=== PATIENT | male | born 1990 | race African-American/Black ===

== ENCOUNTER 2020-03-02 21:15 | Emergency (ER) | payer SELFPAY ==
[~2020-03-02] VITALS: Ht 182.9 cm; Wt 76.8 kg
[2020-03-02 21:27] VITALS: BP 146/88
--- NOTE | 2020-03-02 22:02 | PHYS DOC ---
Past Medical History Past Medical History: Seizure, Other Additional Past Medical Histor: "HEART FALIURE" (SAMI MCDERMOTT APRN) Past Surgical History: No Surgical History (SAMI MCDERMOTT APRN) Smoking Status: Never Smoker Alcohol Use: None (SAMI MCDERMOTT APRN) General Adult EDM: Chief Complaint: EARACHE/EAR PAIN HPI: HPI: Patient is a 29 year old male with hx of seizures who presents to the ED today with left ear pain that began 2 days ago after he had a seizure. Patient states he has decreased hearing to that ear. He is also complaining of a contusion on the top of the head that he noted after he had a seizure. He states he was evaluated at [facility] when he had a seizure. (SAMI MCDERMOTT APRN) Review of Systems: Review of Systems: Constitutional: Denies fever or chills. [] Eyes: Denies change in visual acuity. [] HENT: Reports left ear pain. Denies nasal congestion or sore throat. [] Respiratory: Denies cough or shortness of breath. [] Cardiovascular: Denies chest pain or edema. [] GI: Denies abdominal pain, nausea, vomiting, bloody stools or diarrhea. [] : Denies dysuria. [] Musculoskeletal: Denies back pain or joint pain. [] Integument: Denies rash. [] Neurologic: Reports contusion to the head. Denies headache, focal weakness or sensory changes. [] Psychiatric: Denies depression or anxiety. [] (SAMI MCDERMOTT APRN) Heart Score: Risk Factors: Risk Factors: DM, Current or recent (<one month) smoker, HTN, HLP, family history of CAD, obesity. Risk Scores: Score 0 - 3: 2.5% MACE over next 6 weeks - Discharge Home Score 4 - 6: 20.3% MACE over next 6 weeks - Admit for Clinical Observation Score 7 - 10: 72.7% MACE over next 6 weeks - Early Invasive Strategies (SAMI MCDERMOTT APRN) Allergies: Allergies: Allergies Coded Allergies Type Severity Reaction Last Updated Verified No Known Drug Allergies 03/02/20 No (SAMI MCDERMOTT APRN) Physical Exam: PE: Constitutional: Well developed, well nourished, no acute distress, non-toxic appearance. [] HENT: Normocephalic, atraumatic, bilateral external ears normal, oropharynx moist, no oral exudates, nose normal. [] Right ear canal with small amount of fresh bright red blood, TM is ruptured. Patient admits to sticking Q-tips in the ear canal. Eyes: PERRLA, EOMI, conjunctiva normal, no discharge. [] Neck: Normal range of motion, no tenderness, supple, no stridor. [] Cardiovascular:Heart rate regular rhythm, no murmur [] Lungs & Thorax: Bilateral breath sounds clear to auscultation [] Abdomen: Bowel sounds normal, soft, no tenderness, no masses, no pulsatile masses. [] Skin: Warm, dry, no erythema, no rash. [] Back: No tenderness, no CVA tenderness. [] Extremities: No tenderness, no cyanosis, no clubbing, ROM intact, no edema. [] Neurologic: Alert and oriented X 3, normal motor function, normal sensory function, no focal deficits noted. Small contusion noted at the mid parietal scalp. [] Psychologic: Affect normal, judgement normal, mood normal. [] (SAMI MCDERMOTT APRN) Current Patient Data: Vital Signs: Vital Signs Date Time Temp Pulse Resp B/P (MAP) Pulse Ox O2 Delivery O2 Flow Rate FiO2 03/02/20 21:27 97.3 81 13 146/88 (107) 99 Room Air 97.3 (SAMI MCDERMOTT APRN) EKG: EKG: [] (SAMI MCDERMOTT APRN) Radiology/Procedures: Radiology/Procedures: [] (SAMI MCDERMOTT APRN) Course & Med Decision Making: Course & Med Decision Making Pertinent Labs and Imaging studies reviewed. (See chart for details) This is a 29-year-old male patient who presents to the ED today complaining of left ear pain that began 2 days ago. Patient has a ruptured TM, unfortunately this happened because he has been sticking Q-tips in his ears for two days due to pain. Will d/c with amoxicillin and educated not to put anything in his ears. He also had a seizure 2 days ago and was complaining about a contusion to the scalp. He was already evaluated at [facility] for the seizure. Recommended ice packs to the contusion. Encourage him to be sure he is taking his seizure medicines. (SAMI MCDERMOTT APRN) Dragon Disclaimer: Dragолег Disclaimer: This electronic medical record was generated, in whole or in part, using a voice recognition dictation system. (SAMI MCDERMOTT APRN) Departure Departure Impression: Primary Impression: Tympanic membrane rupture Qualified Codes: H72.92 - Unspecified perforation of tympanic membrane, left ear Additional Impression: Scalp contusion Qualified Codes: S00.03XA - Contusion of scalp, initial encounter Disposition: HOME, SELF-CARE Condition: STABLE Referrals: NO PCP (PCP) Follow-up with your doctor in 1 to 2 weeks Patient Instructions: Contusion, [id number], Tympanic Membrane Perforation- [facility] Additional Instructions: Please take the prescribed antibiotics until completed, do not put anything in your ears. You have a contusion to your scalp. Apply ice to this region. Follow-up with your own doctor in 1 to 2 weeks. Ensure you are taking your seizure medicines. Scripts Amoxicillin (AMOXICILLIN) 875 Mg Tablet 1 TAB PO BID, #20 TAB Prov: SAMI MCDERMOTT APRN 03/02/20 Justicifation of Admission Dx: Justifications for Admission: Justification of Admission Dx: N/A (SAMI MCDERMOTT APRN) Attending Signature Attending Signature I have reviewed the PA/DIRECTORY CLERK's note and plan of care. I was available for consultation as needed during the patient's visit in the emergency department. I agree with the clinical impression, plan, and disposition. (JEROD FIGUEROA DO) SAMI MCDERMOTT APRN Mar 02, 2020 22:02 JEROD FIGUEROA DO Mar 03, 2020 01:59
[2020-03-02] MEDS ORDERED: AMOX875T PO (22:05)
== END 2020-03-02 22:08 | disposition home or self-care (01) ==
LOC: ER 21:15
DX: S00.03XA Contusion of scalp, initial encounter (principal); H72.92 Unspecified perforation of tympanic membrane, left ear; R56.9 Unspecified convulsions; X58.XXXA Exposure to other specified factors, initial encounter; Y93.89 Activity, other specified; Y92.89 Other specified places as the place of occurrence of the external cause; Y99.8 Other external cause status
CPT/HCPCS: 99283

== ENCOUNTER 2020-03-12 23:34 | Emergency (ER) | payer SELFPAY ==
[~2020-03-12] VITALS: Ht 198.1 cm; Wt 80.0 kg
[~2020-03-12 23:34] MED LIST: AMOX875T PO
[2020-03-13] MEDS ORDERED: ACETAMINOPHEN 325 MG TABLET. PO ONE (01:00)
[2020-03-13 02:00] LABS: BASO # 0.1 x10^3/uL (0.0-0.2); BASO % 1 % (0-3); EOS % 0 % (0-3); HEMATOCRIT 39.2 % (39.0-53.0); HEMOGLOBIN 13.6 g/dL (13.0-17.5); LYMPH # 1.7 x10^3/uL (1.0-4.8); LYMPH % 14 % (24-48); MEAN CORPUSCULAR HEMOGLOBIN 29 pg (25-35); MEAN CORPUSCULAR HGB CONC 35 g/dL (31-37); MEAN CORPUSCULAR VOLUME 84 fL (79-100); MONO # 1.7 x10^3/uL (0.0-1.1); MONO % 14 % (0-9); NEUT # 8.6 x10^3/uL (1.8-7.7); NEUT % 71 % (31-73); PLATELET COUNT 179 x10^3/uL (140-400); RED BLOOD COUNT 4.67 x10^6/uL (4.30-5.70); RED CELL DISTRIBUTION WIDTH 14.1 % (11.5-14.5); WHITE BLOOD COUNT 12.1 x10^3/uL (4.0-11.0)
[2020-03-13] MEDS ORDERED: IV NORMAL SALINE 1000ML BAG 1,000 ML IV ONE (02:00)
[2020-03-13] MEDS ORDERED: KETOROLAC 15 MG/ML VIAL. IVP ONE (02:00)
[2020-03-13 02:11] LABS: CALCIUM 8.7 mg/dL (8.5-10.1); CREATININE 1.2 mg/dL (0.7-1.3); GFR 86.6; POTASSIUM 3.6 mmol/L (3.5-5.1)
[2020-03-13 02:21] LABS: INFLUENZA A PATIENT NEGATIVE (NEGATIVE); INFLUENZA B PATIENT NEGATIVE (NEGATIVE)
[2020-03-13 02:26] LABS: ALBUMIN 3.3 g/dL (3.4-5.0); ALBUMIN/GLOBULIN RATIO 0.8 (1.0-1.7); TOTAL BILIRUBIN 0.3 mg/dL (0.2-1.0); TOTAL PROTEIN 7.3 g/dL (6.4-8.2)
--- NOTE | 2020-03-13 03:01 | RAD ---
INDICATION: Reason: pui / Spl. Instructions: / History: COMPARISON: None. FINDINGS: Single view of chest obtained. Cardiac silhouette is unremarkable given portable technique. No gross osseous destructive lesion. A well-defined focal infiltrate is not seen IMPRESSION: * No definite focal infiltrate is identified. Electronically signed by: Yinka Burris MD (03/13/2020 2:58 AM) [id number]
[2020-03-13] MEDS ORDERED: IBUP-1007 PO (03:32)
--- NOTE | 2020-03-13 03:32 | PHYS DOC ---
Past Medical History Past Medical History: CHF Additional Past Medical Histor: LACERATED LIVER Past Surgical History: No Surgical History Smoking Status: Current Every Day Smoker Additional Information: PACK / DAY Alcohol Use: Occasionally Social History Narrative: LAST USED THE General Adult EDM: Chief Complaint: FEVER HPI: HPI: 29 yo M who denies any significant past medical history presents the ED with complaints of sore throat, dry nonproductive cough, fever, body aches and loose watery diarrhea for the past 4 days. Patient states he seen at yesterday and tested negative for strep, refused to covid test stating "I don't like [facility]." No history of IV drug use. Review of Systems: Review of Systems: Constitutional: Denies fever or chills. [] Eyes: Denies change in visual acuity. [] HENT: Denies nasal congestion or sore throat. [] Respiratory: Denies cough or shortness of breath. [] Or hemoptysis Cardiovascular: Denies chest pain or edema. [] Or syncope GI: Denies abdominal pain, nausea, vomiting, bloody stools or diarrhea. [] : Denies dysuria. [] Or hematuria Musculoskeletal: Denies back pain or joint pain. [] Integument: Denies rash. [] Neurologic: Denies headache, focal weakness or sensory changes. [] Neck stiffness or rigidity Endocrine: Denies polyuria or polydipsia. [] Lymphatic: Denies swollen glands. [] Psychiatric: Denies depression or anxiety. [] Heart Score: Risk Factors: Risk Factors: DM, Current or recent (<one month) smoker, HTN, HLP, family history of CAD, obesity. Risk Scores: Score 0 - 3: 2.5% MACE over next 6 weeks - Discharge Home Score 4 - 6: 20.3% MACE over next 6 weeks - Admit for Clinical Observation Score 7 - 10: 72.7% MACE over next 6 weeks - Early Invasive Strategies Current Medications: Current Medications Medications (Trade) Dose Ordered Sig/Betsey Start Time Stop Time Status Last Admin Dose Admin Acetaminophen (Tylenol) 650 mg 1X ONCE 03/13/20 01:00 03/13/20 01:01 DC 03/13/20 01:14 650 MG Ketorolac Tromethamine (Toradol 15mg Vial) 15 mg 1X ONCE 03/13/20 02:00 03/13/20 02:01 DC 03/13/20 02:25 15 MG Sodium Chloride 1,000 ml @ 1,000 mls/hr 1X ONCE 03/13/20 02:00 03/13/20 02:59 DC 03/13/20 01:42 1,000 MLS/HR Allergies: Allergies: Allergies Coded Allergies Type Severity Reaction Last Updated Verified No Known Drug Allergies 03/02/20 No Physical Exam: PE: Constitutional: Well developed, well nourished, no acute distress, non-toxic appearance. [] HENT: Normocephalic, atraumatic, bilateral external ears normal, oropharynx moist, no oral exudates, nose normal. [] Eyes: PERRLA, EOMI, conjunctiva normal, no discharge. [] Neck: Normal range of motion, no tenderness, supple, no stridor. [] Cardiovascular:Heart rate regular rhythm, no murmur [] Lungs & Thorax: Bilateral breath sounds clear to auscultation [] Abdomen: Bowel sounds normal, soft, no tenderness, no masses, no pulsatile masses. [] Skin: Warm, dry, no erythema, no rash. [] Back: No tenderness, no CVA tenderness. [] Extremities: No tenderness, no cyanosis, no clubbing, ROM intact, no edema. [] Neurologic: Alert and oriented X 3, normal motor function, normal sensory function, no focal deficits noted. [] Psychologic: Affect normal, judgement normal, mood normal. [] Current Patient Data: Labs: Laboratory Tests Test 03/13/20 01:45 03/13/20 01:48 White Blood Count 12.1 x10^3/uL (4.0-11.0) H Red Blood Count 4.67 x10^6/uL (4.30-5.70) Hemoglobin 13.6 g/dL (13.0-17.5) Hematocrit 39.2 % (39.0-53.0) Mean Corpuscular Volume 84 fL (79-100) Mean Corpuscular Hemoglobin 29 pg (25-35) Mean Corpuscular Hemoglobin Concent 35 g/dL (31-37) Red Cell Distribution Width 14.1 % (11.5-14.5) Platelet Count 179 x10^3/uL (140-400) Neutrophils (%) (Auto) 71 % (31-73) Lymphocytes (%) (Auto) 14 % (24-48) L Monocytes (%) (Auto) 14 % (0-9) H Eosinophils (%) (Auto) 0 % (0-3) Basophils (%) (Auto) 1 % (0-3) Neutrophils # (Auto) 8.6 x10^3/uL (1.8-7.7) H Lymphocytes # (Auto) 1.7 x10^3/uL (1.0-4.8) Monocytes # (Auto) 1.7 x10^3/uL (0.0-1.1) H Eosinophils # (Auto) 0.0 x10^3/uL (0.0-0.7) Basophils # (Auto) 0.1 x10^3/uL (0.0-0.2) Sodium Level 136 mmol/L (136-145) Potassium Level 3.6 mmol/L (3.5-5.1) Chloride Level 99 mmol/L (98-107) Carbon Dioxide Level 26 mmol/L (21-32) Anion Gap 11 (6-14) Blood Urea Nitrogen 9 mg/dL (8-26) Creatinine 1.2 mg/dL (0.7-1.3) Estimated GFR (Cockcroft-Gault) 86.6 BUN/Creatinine Ratio 8 (6-20) Glucose Level 103 mg/dL (70-99) H Lactic Acid Level 0.7 mmol/L (0.4-2.0) Calcium Level 8.7 mg/dL (8.5-10.1) Total Bilirubin 0.3 mg/dL (0.2-1.0) Aspartate Amino Transferase (AST) 24 U/L (15-37) Alanine Aminotransferase (ALT) 22 U/L (16-63) Alkaline Phosphatase 46 U/L (46-116) Troponin I Quantitative < 0.017 ng/mL (0.000-0.055) Total Protein 7.3 g/dL (6.4-8.2) Albumin 3.3 g/dL (3.4-5.0) L Albumin/Globulin Ratio 0.8 (1.0-1.7) L Influenza Type A Antigen Negative (NEGATIVE) Influenza Type B Antigen Negative (NEGATIVE) Laboratory Tests 03/13/20 01:45 Laboratory Tests 03/13/20 01:45 Vital Signs: Vital Signs Date Time Temp Pulse Resp B/P (MAP) Pulse Ox O2 Delivery O2 Flow Rate FiO2 03/13/20 00:52 103.1 112/60 (77) 97 Room Air 103.1 EKG: EKG: [] Radiology/Procedures: Radiology/Procedures: []IMAGING REPORT Signed PATIENT: NIKHIL AGUILA ACCOUNT: [id number] : 1990 LOCATION: ER AGE: 29 SEX: M EXAM STATUS: REG ER ORD. PHYSICIAN: YULIYA MARTE DO REASON: pui PROCEDURE: CHEST AP ONLY INDICATION: Reason: pui / Spl. Instructions: / History: COMPARISON: None. FINDINGS: Single view of chest obtained. Cardiac silhouette is unremarkable given portable technique. No gross osseous destructive lesion. A well-defined focal infiltrate is not seen IMPRESSION: * No definite focal infiltrate is identified. Electronically signed by: Mariluz Burris MD (03/13/2020 2:58 AM) [id number] DICTATED and SIGNED BY: MARILUZ BURRIS MD DATE: 03/13/20 0258 Course & Med Decision Making: Course & Med Decision Making Pertinent Labs and Imaging studies reviewed. (See chart for details) COVID-19 CRITERIA: The patient was evaluated during the global COVID-19 pandemic, and that diagnosis was suspected/considered upon their initial presentation. Their evaluation, treatment and testing was consistent with current guidelines for patients who present with complaints or symptoms that may be related to COVID-19. Concern for COVID-19 versus viral illness. Wbc 12.1, no lactic acidosis. Influenza negative. No tachycardia. Patient with no nuchal rigidity or headache. Commended follow-up in 24 to 48 hours for reevaluation. Strict ED return precautions were given for increased work of breathing, dehydration, neck pain, headache or worsening pain. Encouraged urgent outpatient follow-up with PMD. Life-threatening processes were considered but are low suspicion at this time, given history and physical exam. Pt was educated on all prescription medications and adverse effects. All patient's questions were answered and pt was stable at time of discharge. Differential includes surgical abdomen (appendicitis, cholecystitis, diverti culitis, inflammatory bowel disease, abscess, perforation), meningitis, encephalitis, Kuldip's angina, necrotizing fasciitis, endocarditis, life- threatening rash, viral syndrome, gynecologic and urologic emergencies (endometritis, ovarian/testicular torsion, TOA, obstructive nephropathy, prostatitis), head and neck abscess, sepsis or shock, or respiratory failure. I spoken with the patient and her caregivers. I explained the patient's condition, diagnoses and treatment plan based on the information available to me at this time. I have answered the patient and her caregiver's questions and addressed any concerns. The patient and her caregivers have a good understanding of patient's diagnosis, condition and treatment plan as can be expected at this point. Vital signs have been stable. Patient's condition is stable and appropriate for discharge from the emergency department. Patient will pursue further outpatient evaluation with primary care physician or other designated or consulting physician as outlined in the discharge instructions. The patient and/or caregivers are agreeable to this plan of care and follow-up instructions have been explained in detail. The patient and/or caregivers have received these instructions in written form and have expressed an understanding of the discharge instructions. The patient and/or caregivers are aware that any significant change of condition or worsening of symptoms should prompt immediate return to this or the closest emergency department or call to 911. Jad Disclaimer: Jad Disclaimer: This electronic medical record was generated, in whole or in part, using a voice recognition dictation system. Departure Departure Impression: Primary Impression: Fever Additional Impression: Suspected 2019-nCoV infection Disposition: 01 HOME, SELF-CARE Condition: STABLE Referrals: NO PCP (PCP) Patient Instructions: Fever, Adult Additional Instructions: You have been tested for or diagnosed with COVID-19. It is an infection caused by a new type of coronavirus. COVID-19 will cause cold-like or mild flu symptoms in most. It can cause more severe symptoms like problems breathing in some. There is no treatment for COVID-19. The body will clear the infection over time. Self-care will help to ease discomfort. Steps to Take: Self-Care Rest as needed. Healthy habits may help you feel better. Steps include: Choose healthy foods including fruits and vegetables. Drink water throughout the day. Get plenty of sleep each night. If you smoke, try to quit. It may ease breathing. Avoid alcohol. Keep Others Healthy The virus can spread to others. Droplets are released every time you sneeze or cough. The droplets can get into the mouth, nose, or eyes of people near you and lead to infection. To lower the chances of spreading COVID-19 to others: Stay at home until your doctor has said it is safe to leave. If you tested positive this will mean staying isolated until both of the following are true: At least 7 days have passed since the start of illness. You are free of fever for at least 72 hours without the use of medicine. During this time: - Avoid public areas, events, or transportation. Do not return to work or school until your doctor has said it is safe to do so. - Call ahead if you need to go to a medical center. Let them know you may have COVID-19. It will help them guide you where to go. They may also ask you to wear a facemask when you come to the office. - If you call for emergency medical services, let them know you may have COVID- 19. While at home: - Try to avoid close contact with others. Stay about 6 feet away. - If possible, spend most of your time in a separate room from others. - Use a face mask if you will be in close contact with others such as sharing a room or vehicle. - Have someone wipe down common surfaces in the home. Use household balance wheel arm burnisher every day on areas like doorknobs, counters, or sinks. - Cough or sneeze into a tissue. Throw the tissue away right after use. If a tissue is not available, cough or sneeze into your elbow. - Wash your hands often. Wash them after sneezing or coughing. Use soap and water and wash for at least 20 seconds. Alcohol based hand final cleaner can be used if soap and water is not available. - Do not prepare food for others. Avoid sharing personal items like forks, spoons, or toothbrushes. - Avoid close contact with pets while you are sick. There is no evidence of the virus passing to pets. This is a safety step until more is known about this virus. Isolation can be frustrating. Social interaction can help. Keep in touch with friends and family through phone and tech options. You can still interact with others in your home, just keep a safe distance of about 6 feet. Follow-up: Your doctors office will check in with you to see if there are any changes in your health. You may be asked to keep track of symptoms to share with them. They will also let you know when you are clear to be in public again. Problems to Look Out For: Contact your doctor if your recovery is not going as you expect. Get emergency care if you have problems such as: - Trouble breathing - Nonstop chest pain or pressure - Changes in awareness, confusion, or problems waking - Lips or face have bluish color - Worsening of symptoms If you think you have an emergency, call for emergency medical services right away. As taken from [facility] Scripts Ondansetron Hcl (ZOFRAN) 4 Mg Tablet 1 TAB PO Q6HRS, #20 TAB Prov: YULIYA MARTE DO 03/13/20 Benzocaine/Menthol (CEPACOL SORE THROAT LOZENGE) 1 Each Lozenge 1 TAB PO Q4HRS for sore throat for 3 Days, #18 TAB 0 Refills Prov: YULIYA MARTE DO 03/13/20 Ibuprofen (IBUPROFEN) 600 Mg Tablet 600 MG PO PRN Q6HRS PRN for PAIN, #20 TAB take with food or milk Prov: YULIYA MARTE DO 03/13/20 Justicifation of Admission Dx: Justifications for Admission: Justification of Admission Dx: N/A YULIYA MARTE DO Mar 13, 2020 03:32
[2020-03-13 03:38] VITALS: BP 121/49
[2020-03-13] MEDS ORDERED: BENZ1LOZ48 PO (03:48)
[2020-03-13] MEDS ORDERED: ONDA4TAB7 PO (03:48)
--- NOTE | 2020-03-14 10:10 | NUR ---
IP: Attempted to contact pt by phone to report negative COVID test. No answer.
== END 2020-03-13 04:10 | disposition home or self-care (01) ==
LOC: ER 23:34
DX: R50.9 Fever, unspecified (principal); Z20.828 Contact with and (suspected) exposure to other viral communicable diseases; R05 Cough; R19.7 Diarrhea, unspecified; I50.9 Heart failure, unspecified; F17.200 Nicotine dependence, unspecified, uncomplicated
CPT/HCPCS: 36415; 71045; 80053; 83605; 84484; 85025; 87040; 87804; 96361; 96374; 99285; J1885; J7030; U0003